=== PATIENT | male | born 1990 | race Caucasian/White ===

== ENCOUNTER → 2018-03-25 | Day surgery (SDC) | payer OTHER ==
[~2018-03-25] VITALS: Ht 174 cm; Wt 81.6 kg
[~2018-03-25] MED LIST: ACETAMINOPHEN 650MG/20.3ML UDC PO NR; FENO48 PO; HYDROMORPHONE HCL/PF 2MG/ML CPJ IV PRN; IBUP-1653 PO; IBUPROFEN 600MG TABLET PO NR; LACTATED RINGERS 1,000 ML IV SCH; LIDOCAINE HCL/PF 1% 10 MG/ML 30ML VIAL ONE; MIDAZOLAM HCL 5 MG/5 ML VIAL ONE; ONDANSETRON HCL 4MG/2ML VIAL IV PRN; PROPOFOL 200MG/20ML VIAL IV ONE; SIMETHICONE 40 MG/0.6 ML 30ML ONE; SODIUM CHLORIDE 0.9% 1,000 ML IV NR; SUCCINYLCHOLINE CHLORIDE 200MG/10ML VIAL IV ONE
[2018-03-25 10:28] LABS: BASOPHILS % 0.3 % (0.0-2.0); EOSINOPHILS % 3.1 % (0.0-5.0); HEMATOCRIT. 43.1 % (42.0-52.0); HEMOGLOBIN. 14.8 g/dL (14.0-18.0); LYMPHOCYTES % 32.9 % (20.0-50.0); MEAN CORPUSCULAR HEMOGLOBIN 29.5 pg (28.0-32.0); MEAN CORPUSCULAR VOLUME 85.7 fL (80.0-94.0); MONOCYTES % 7.7 % (2.0-8.0); PLATELET 304 x1000/uL (130-400); RED BLOOD CELL COUNT 5.04 mill/uL (4.7-6.1); RED CELL DISTRIBUTION WIDTH 14.1 % (11.6-14.6)
[2018-03-25 10:36] LABS: INR 1.1; PARTIAL THROMBOPLASTIN TIME 29.1 sec (23.4-31.0)
[2018-03-25 10:41] LABS: CHLORIDE 104 mEq/L (98-107)
== END | disposition home or self-care (01) ==
LOC: OR 09:15
PROVIDERS: ATTEND Internal Medicine Gastroenterology
DX: K29.50 Unspecified chronic gastritis without bleeding (principal); K44.9 Diaphragmatic hernia without obstruction or gangrene; K21.0 Gastro-esophageal reflux disease with esophagitis; F41.9 Anxiety disorder, unspecified; F32.9 Major depressive disorder, single episode, unspecified; F17.200 Nicotine dependence, unspecified, uncomplicated
CPT/HCPCS: 36415; 80048; 82962; 85025; 85610; 85730; 88305; 88312; 88313; J0330; J2250; J2704; J3490; J7120

== ENCOUNTER 2018-05-07 06:20 | Emergency (ER) | payer OTHER ==
[~2018-05-07] VITALS: Ht 175.3 cm; Wt 82.0 kg
[~2018-05-07 06:20] MED LIST changes: -ACETAMINOPHEN 650MG/20.3ML UDC PO NR; -HYDROMORPHONE HCL/PF 2MG/ML CPJ IV PRN; -IBUPROFEN 600MG TABLET PO NR; -LACTATED RINGERS 1,000 ML IV SCH; -LIDOCAINE HCL/PF 1% 10 MG/ML 30ML VIAL ONE; -MIDAZOLAM HCL 5 MG/5 ML VIAL ONE; -ONDANSETRON HCL 4MG/2ML VIAL IV PRN; -PROPOFOL 200MG/20ML VIAL IV ONE; -SIMETHICONE 40 MG/0.6 ML 30ML ONE; -SODIUM CHLORIDE 0.9% 1,000 ML IV NR; -SUCCINYLCHOLINE CHLORIDE 200MG/10ML VIAL IV ONE
[2018-05-07] MEDS ORDERED: ONDANSETRON HCL 4MG/2ML VIAL IV STA (06:43)
[2018-05-07] MEDS ORDERED: MORPHINE SULFATE 4 MG/ML CPJ (NOT FOR IM USE) IV STA (06:43)
[2018-05-07] MEDS ORDERED: SODIUM CHLORIDE 0.9% 1,000 ML IV ONE (06:43)
[2018-05-07 07:10] LABS: CLARITY URINE CLEAR (CLEAR); COLOR URINE YELLOW (YELLOW); KETONES URINE NEGATIVE (NEGATIVE); LEUKOCYTE ESTERASE URINE NEGATIVE (NEGATIVE); NITRITE URINE NEGATIVE (NEGATIVE); OCCULT BLOOD URINE NEGATIVE (NEGATIVE); PROTEIN URINE NEGATIVE (NEGATIVE); SPECIFIC GRAVITY URINE 1.023 (1.005-1.030)
[2018-05-07 07:27] LABS: BASOPHILS % 0.4 % (0.0-2.0); EOSINOPHILS % 2.3 % (0.0-5.0); HEMATOCRIT. 38.4 % (42.0-52.0); HEMOGLOBIN. 13.3 g/dL (14.0-18.0); LYMPHOCYTES % 30.5 % (20.0-50.0); MEAN CORPUSCULAR HEMOGLOBIN 29.6 pg (28.0-32.0); MEAN CORPUSCULAR VOLUME 85.8 fL (80.0-94.0); MEAN PLATELET VOLUME 7.8 fl (7.4-10.4); MONOCYTES % 7.6 % (2.0-8.0); NEUTROPHILS % 59.2 % (40.0-76.0); PLATELET 306 x1000/uL (130-400); RED BLOOD CELL COUNT 4.48 mill/uL (4.7-6.1); RED CELL DISTRIBUTION WIDTH 13.7 % (11.6-14.6)
[2018-05-07 07:28] LABS: CHLORIDE 108 mEq/L (98-107)
[2018-05-07] MEDS ORDERED: VISCOUS LIDOCAINE 2% 15 ML UDC PO STA (07:37)
[2018-05-07] MEDS ORDERED: KETOROLAC 30MG/ML VIAL IV STA (07:37)
[2018-05-07] MEDS ORDERED: MAGNESIUM/ALUMINUM HYDROXIDE/SIMETHICONE 30ML UDC PO STA (07:37)
[2018-05-07 07:38] LABS: ETHANOL BLOOD < 10 mg/dL
[2018-05-07] MEDS ORDERED: IOHEXOL-300 100 ML BOTTLE ONE (08:34)
[2018-05-07] MEDS ORDERED: FAMOTIDINE 20MG/2ML VIAL IV ONE (09:15)
[2018-05-07 10:18] VITALS: BP 116/66
== END 2018-05-07 10:24 | disposition home or self-care (01) ==
LOC: ER 06:37
DX: K29.70 Gastritis, unspecified, without bleeding (principal); R10.31 Right lower quadrant pain; D64.9 Anemia, unspecified; E78.00 Pure hypercholesterolemia, unspecified; F17.200 Nicotine dependence, unspecified, uncomplicated; R73.03 Prediabetes
CPT/HCPCS: 36415; 74177; 80053; 81003; 83690; 85025; 96361; 96374; 96375; 99285; G0482; J1885; J2270; J2405; J3490; J7030; Q9967; Z7610